=== PATIENT | male | born 1955 | race Caucasian/White ===

== ENCOUNTER → 2016-11-05 | Outpatient (CLI) | payer BC, OTHER ==
[~2016-11-05] MED LIST: ASPI-428 PO; METF1TAB53 PO; PRAV20TA2 PO; PRT/40 PO; RAMI5CAP PO; REGADENOSON 0.4 MG/5 ML SYR ONE; SITA50TA3 PO
--- NOTE | 2016-11-05 16:21 | MYOCARDIAL PERFUSION SCAN ---
LEXISCAN CARDIOLITE IMAGING TECHNIQUE: Pharmacologic stress was achieved through injection of 0.4 mg of Lexiscan. For the stress portion of the study, 33.9 mCi of technicium-99m Cardiolite IV was injected at 9:20 a.m. on 11/05/2016. 30 minutes following the injection, imaging of the heart was performed in multiple projections. For the rest portion of the study, 10.8 mCi of technicium-99m Cardiolite was injected IV at 7:30 a.m. One hour following the injections, imaging of the heart was performed in the same projections. FINDINGS: The short axis, vertical long axis, and horizontal long axis images were reviewed in detail. There were no perfusion defects at rest or during stress. On gated images, left ventricular wall motion and systolic function were normal (EF=83%). IMPRESSION: 1. No scintigraphic evidence of myocardial infarct or ischemia. 2. Normal left ventricular wall motion and systolic function (EF=83%). 3. No ECG abnormalities. 4. No symptoms reported. MTDD
== END | disposition home or self-care (01) ==
LOC: C.NUCL 06:59
PROVIDERS: ATTEND Internal Medicine
DX: R07.9 Chest pain, unspecified (principal)

== ENCOUNTER → 2017-09-20 | Outpatient (CLI) | payer BC ==
[~2017-09-20] MED LIST changes: +PANT40TA2 PO; -PRT/40 PO; -REGADENOSON 0.4 MG/5 ML SYR ONE
[2017-09-20 12:15] LABS: ESTIMATED AVERAGE GLUCOSE 174 mg/dl; HA1C FLAG Normal (Normal)
[2017-09-20 12:21] LABS: ALKALINE PHOSPHATASE 114 U/L (45-117); ALT/SGPT 40 U/L (12-78); AST/SGOT 21 U/L (15-37); BLOOD UREA NITROGEN 16 mg/dl (7-18); BUN/CREATININE RATIO 13.4 (10-20); CALCIUM 8.9 mg/dl (8.5-10.1); CARBON DIOXIDE 26 mmol/L (21-32); CHLORIDE 106 mmol/L (98-107); CHOLESTEROL 154 mg/dl (0-200); CREATININE 1.18 mg/dl (0.60-1.40); GLUCOSE 137 mg/dl (70-99); POTASSIUM 4.1 mmol/L (3.5-5.1); SODIUM 140 mmol/L (136-145)
[2017-09-20 12:22] LABS: BASO % 0.6 %; BASO ABS # 0.05 K/uL (0-0.2); COMPLETE YES; EOS % 1.6 %; HEMATOCRIT 49.5 % (42-52); IG% 0.5 %; LYMPH % 33.3 %; LYMPH ABS # 2.92 K/uL (1.2-3.4); MEAN CELL VOLUME 89.8 fL (80-100); MEAN CORPUSCULAR HEMOGLOBIN 30.7 pg (25-34); MEAN CORPUSCULAR HGB CONC 34.1 g/dl (32-36); MONO % 7.6 %; NEUT % 56.4 %; PLATELET COUNT 221 K/uL (130-400); RED BLOOD COUNT 5.51 M/uL (4.7-6.1); WHITE BLOOD COUNT 8.78 K/uL (4.8-10.8)
[2017-09-20 12:26] LABS: CHOLESTEROL/HDL RATIO 3.3; HDL CHOLESTEROL 46 mg/dl; LDL CHOLESTEROL CALCULATED 88 mg/dl; TRIGLYCERIDES 98 mg/dl (0-150); VERY LOW DENSITY LIPOPROT CALC 20 mg/dl
== END | disposition home or self-care (01) ==
LOC: C.LABPBG 09:03
PROVIDERS: ATTEND Internal Medicine
DX: Z00.00 Encounter for general adult medical examination without abnormal findings (principal); E11.9 Type 2 diabetes mellitus without complications; G47.33 Obstructive sleep apnea (adult) (pediatric); I10 Essential (primary) hypertension; E78.5 Hyperlipidemia, unspecified; K21.9 Gastro-esophageal reflux disease without esophagitis

== ENCOUNTER → 2018-01-16 | Outpatient (CLI) | payer BC ==
[2018-01-16 13:29] LABS: BLOOD UREA NITROGEN 21 mg/dl (7-18); CALCIUM 8.9 mg/dl (8.5-10.1); CARBON DIOXIDE 26 mmol/L (21-32); GLUCOSE 133 mg/dl (70-99); POTASSIUM 3.9 mmol/L (3.5-5.1); SODIUM 139 mmol/L (136-145)
[2018-01-16 13:42] LABS: HEMOGLOBIN A1C 6.6 % (4.5-5.6)
== END | disposition home or self-care (01) ==
LOC: C.LABBC 11:06
PROVIDERS: ATTEND Family Medicine Adult Medicine
DX: E11.9 Type 2 diabetes mellitus without complications (principal); I10 Essential (primary) hypertension; R53.83 Other fatigue

== ENCOUNTER → 2018-06-15 | Outpatient (CLI) | payer BC ==
[~2018-06-15] MED LIST changes: -ASPI-428 PO; +MELO-83 PO; +PANT40TA PO; -PANT40TA2 PO; +RANI150T85 PO
[2018-06-15 10:38] LABS: BLOOD UREA NITROGEN 17 mg/dl (7-18); CALCIUM 8.7 mg/dl (8.5-10.1); CARBON DIOXIDE 28 mmol/L (21-32); CREATININE 1.12 mg/dl (0.60-1.40); GLUCOSE 167 mg/dl (70-99); POTASSIUM 4.3 mmol/L (3.5-5.1); SODIUM 137 mmol/L (136-145)
[2018-06-15 11:32] LABS: BASO % 0.5 %; BASO ABS # 0.04 K/uL (0-0.2); EOS % 2.1 %; EOS ABS # 0.17 K/uL (0-0.5); HEMATOCRIT 49.5 % (42-52); HEMOGLOBIN 17.1 g/dL (14.0-18.0); IG# 0.07 K/uL (0.00-0.02); LYMPH % 28.9 %; LYMPH ABS # 2.32 K/uL (1.2-3.4); MEAN CELL VOLUME 88.1 fL (80-100); MEAN CORPUSCULAR HEMOGLOBIN 30.4 pg (25-34); MEAN CORPUSCULAR HGB CONC 34.5 g/dl (32-36); MEAN PLATELET VOLUME 10.9 fL (7.4-10.4); MONO % 10.5 %; MONO ABS # 0.84 K/uL (0.11-0.59); NEUT % 57.1 %; NEUT ABS # 4.58 K/uL (1.4-6.5); PLATELET COUNT 208 K/uL (130-400); RED CELL DISTRIBUTION WIDTH CV 12.7 % (11.5-14.5); RED CELL DISTRIBUTION WIDTH SD 40.3 fL (36.4-46.3); WHITE BLOOD COUNT 8.02 K/uL (4.8-10.8)
[2018-06-15 11:45] LABS: PTT PATIENT 28.7 SECONDS (21.0-31.0)
[2018-06-15 12:08] LABS: HEMOGLOBIN A1C 7.4 % (4.5-5.6)
== END | disposition home or self-care (01) ==
LOC: C.CPL 06:57
PROVIDERS: ATTEND Orthopaedic Surgery Sports Medicine
DX: Z01.810 Encounter for preprocedural cardiovascular examination (principal); Z01.812 Encounter for preprocedural laboratory examination

== ENCOUNTER 2022-06-08 08:05 | Observation (INO) ==
--- NOTE | 2022-05-12 10:20 | PAT Medication Instructions ---
Medication Instructions Date of Service May 12, 2022 Home Medications Medication Instructions Recorded pantoprazole 40 mg tablet,delayed 40 mg PO QAM #90 tabs 09/01/21 release (Protonix) pravastatin 20 mg tablet 20 mg PO QAM #90 tabs 09/01/21 pantoprazole 40 mg tablet,delayed release (Protonix) 40 mg PO QAM pravastatin 20 mg tablet 20 mg PO QAM Medical Marijuana 1 inh inhalation QAM PRN sitagliptin 100 mg tablet (Januvia) 100 mg PO QAM metformin 500 mg tablet,extended release 24 hr 1,000 mg PO QAM multivitamin 1 tab PO QAM ramipril 5 mg capsule 5 mg PO QAM DO NOT take the morning of surgery Medical Marijuana 1 inh inhalation QAM PRN sitagliptin 100 mg tablet (Januvia) 100 mg PO QAM metformin 500 mg tablet,extended release 24 hr 1,000 mg PO QAM multivitamin 1 tab PO QAM ramipril 5 mg capsule 5 mg PO QAM Take morning of surgery With a small sip of water, OTHERWISE NOTHING TO EAT OR DRINK AFTER MIDNIGHT: pantoprazole 40 mg tablet,delayed release (Protonix) 40 mg PO QAM pravastatin 20 mg tablet 20 mg PO QAM Other Notes If you have any questions please call us at [phone] or [phone] or [phone] or [phone]
--- NOTE | 2022-05-13 11:42 | Anesthesiology Consultation ---
Date of Service May 13, 2022 Assessment & Plan (1) Encounter for pre-operative examination: Chart Review Chart Review: Acceptable Risk for Surgery (pending preop Covid testing results ) and Patient seen in Pre Admission Testing - Check BSG AM DOS Per PAT appt on 05/13/22, patient traveled to the [facility]- returned 05/09/22. No known Covid positive exposures or Covid related symptoms. No known Covid infection in the past 90 days. Pt is vaccinated for Covid. Preop Covid testing scheduled 06/04/22 = will await results. Educated on importance of self quarantining, social distancing and wearing mask in public for the patient one week prior to surgery and after Covid testing done R TKA 07/11/18= Done under SAB at L3 with 1 attempt Teaching & Discussion Pre-Anesthesia Teaching/Discussion Notes: Instructed NPO after midnight before surgery,except medications with 15 cc of water. Medication instructions provided according to the PAT guidelines. History Surgery Operation Date: 06/08/22 07:00 Proposed Procedures p Right Total Knee Removal and Possible Revision Arthroplasty Versus Antibiotic Spacer - Marciano Parkinson MD Height/Weight Height: 5 ft 11 in Weight: 109.1 kg Allergies Allergy/AdvReac Type Severity Reaction Status Date / Time No Known Allergies Allergy Verified 05/11/22 08:39 Medications Home Medications Medication Instructions Recorded Confirmed Last Taken pantoprazole 40 mg tablet,delayed 40 mg PO QAM #90 tabs 09/01/21 05/11/22 Unknown release (Protonix) pravastatin 20 mg tablet 20 mg PO QAM #90 tabs 09/01/21 05/11/22 Unknown Medical Marijuana 1 inh inhalation QAM PRN Pain 10/08/21 05/11/22 Unknown sitagliptin 100 mg tablet (Januvia) 100 mg PO QAM 04/23/22 05/11/22 Unknown metformin 500 mg tablet,extended 1,000 mg PO QAM 05/11/22 05/11/22 Unknown release 24 hr multivitamin 1 tab PO QAM 05/11/22 05/11/22 Unknown ramipril 5 mg capsule 5 mg PO QAM 05/11/22 05/11/22 Unknown Past Medical History Medical History Chronic back pain Diabetes mellitus, type 2 NIDDM Hgb A1C 7.9 on 04/23/22 (Januvia increased per patient) GERD (gastroesophageal reflux disease) Mild Well controlled and stable Hiatal hernia Hyperlipidemia Hypertension Obesity (BMI 30-39.9) Osteoarthritis Painful total knee replacement, right Sleep apnea CPAP Exercise / Class Metabolic Activity III < 4 Walking/Shop/Light housework (no chest pain or SOB with flat surface ambulation- starting using cane today due to knee pain ) Past Family History Family History Father Cancer Mother Coronary arteriosclerosis Diabetes Essential hypertension Brother Prostate cancer Myocardial infarction Denies family history of Ovarian cancer Breast cancer Lung cancer Colorectal cancer Past Surgical History Surgical History History of carpal tunnel release LEFT History of colonoscopy with polypectomy History of esophagogastroduodenoscopy (EGD) History of lumbar spinal fusion History of total knee replacement right Hx of cholecystectomy Past Anesthesia History No Hx of Anesthesia Complications and No Family Hx of Anesthesia Complications History of PONV No Hx of PONV and No Hx of Motion Sickness Social History Smoking Status: Never smoker tobacco type: smokeless tobacco Do You Dip or Chew Tobacco: Yes (1 can/week (advised)) Hx Alcohol Use: No Hx Substance Use: Yes (medical) substance use type: marijuana Substance Use Type Other:: medical marijuana> qam vapes > for pain Last Used Substance Other:: OCAS - ADVISED Review of Systems Mild cough x months- does not feel sick/ill/no other symptoms- cough mild/stable- only at night - unsure if he had Covid in Dec 2021 (home tests negative)- unsure if residual effects vs allergies Patient denies chest pain, shortness of breath, wheezing, palpitations. No hx of seizures, stroke, [place]. No hx of blood clots or blood transfusions Physical Exam VITALS BP 159/79 (pt in increased knee pain) P 72 TEMP 98.5 SP02 97% RESP 16 Constitutional no acute distress ENMT Mouth: + small oral opening; no TMJ clicking Thyromental Distance: > or= 3.5 Finger Breadths (3.5) Mallampati Class: IV Missing molars Capped to molar Neck + limited neck extension (mild ) Respiratory normal respiratory effort; no respiratory distress Auscultation: lungs clear to auscultation bilaterally; no wheezes Cardiovascular Rate/Rhythm: regular rate and regular rhythm Heart Sounds: no murmur Vessels: no carotid bruit Musculoskeletal Spine: no pain with cervical ROM Extremities: extremities normal to inspection Psychiatric Orientation: alert Lab Results Anesthesia Preop Results Results Anesthesia Widget: WBC 12.45 K/ul (4.8-10.8) H 05/13/22 Hgb 15.7 g/dl (14.0-18.0) 05/13/22 Hct 46.4 % (40.1-51.0) 05/13/22 Plt 259 K/uL (130-400) 05/13/22 Na 136 mmol/L (136-145) 05/13/22 K 4.1 mmol/L (3.5-5.1) 05/13/22 Cl 102 mmol/L (98-107) 05/13/22 CO2 28 mmol/L (21-32) 05/13/22 BUN 15 mg/dl (6-23) 05/13/22 Creat 1.05 mg/dl (0.6-1.4) 05/13/22 Glucose Level 110 mg/dl (70-99(Fasting)) H 05/13/22 PT 11.6 Seconds (9.0-12.0) 05/13/22 PTT 31.9 Seconds (21.0-31.0) H 05/13/22 INR 1.1 (0.9-1.1) 05/13/22 HA1c 7.9 % (4.5-5.6) H 04/23/22 Blood Type O Positive 05/13/22 Antibody Screen NEGATIVE 05/13/22 Testing Laboratory Results Surgeon's office made aware mild leukocytosis - will leave to surgeon's discretion how to proceed Electrocardiogram Date: 05/13/22 Findings: + NSR @ (71bpm ) Normal EKG per cardio. Chest X-Ray Date: 05/13/22 Findings: + NAD
[~2022-06-08 08:05] MED LIST changes: +ACETAMINOPHEN 500 MG TAB PO SCH; +BUPIVACAINE 0.5 % 5 MG/1 ML PF 10ML VIAL ONE; +BUPIVACAINE LIPOSOME/PF 266 MG, BUPIVACAINE/EPINEPHRINE 50 ML, SODIUM CHLORIDE 0.9% 30 ... INFIL SCH; +CeleBREX 200 MG CAP PO SCH; +DAKIN'S SOLN 0.5% FULL STRENGTH 473ML BTL EXT ONE; +EPINEPHrine INJ 1 MG/ML AMP ONE; +FAMOTIDINE 20 MG TAB PO SCH; +LR 500ML BOLUS, THEN 15ML/HR IV SCH; +LR 60ML/HR IV SCH; -MELO-83 PO; -METF1TAB53 PO; +METOCLOPRAMIDE HCL 10 MG TABLET PO SCH; -PANT40TA PO; -PRAV20TA2 PO; -RAMI5CAP PO; -RANI150T85 PO; +ROPIVACAINE 0.5% 5 MG/ML 30 ML VIAL ONE; -SITA50TA3 PO; +Scopolamine 1 MG TDSY TD SCH; +TRANEXAMIC ACID 1,000 MG **IV Intra-op IV SCH; +ceFAZolin 2000MG 2,000 MG/15 ML SYR IV SCH
[2022-06-08] MEDS ORDERED: MIDAZOLAM HCL 1 MG/ML 2ML VIAL ONE (08:17)
[2022-06-08] MEDS ORDERED: fentaNYL citrate 100 MCG/2 ML VIAL ONE (08:17)
--- NOTE | 2022-06-08 09:04 | History & Physical Bridge Note ---
Date of Service June 08, 2022 History & Physical Bridge Note I have examined the patient, reviewed the History & Physical and in the interval since the performance of the History & Physical I have noted the following changes of clinical significance: no changes noted
[2022-06-08] MEDS ORDERED: BUPIVACAINE/EPINEPHRINE 0.25% 1:200,000 30 ML VIAL ONE (10:58)
[2022-06-08] MEDS ORDERED: SODIUM CHLORIDE 0.9% PF 50 ML VIAL ONE (10:59)
[2022-06-08] MEDS ORDERED: BUPIVACAINE LIPOSOME 1.3% 266 MG/20 ML VIAL ONE (10:59)
[2022-06-08] MEDS ORDERED: VANCOMYCIN HCL 1000MG/20ML VIAL ONE ×5 (11:00→14:07)
[2022-06-08] MEDS ORDERED: TOBRAMYCIN SULFATE VIAL ONE ×5 (11:01→14:08)
[2022-06-08] MEDS ORDERED: PROPOFOL IV EMULSION 10 MG/ML 20 ML VIAL IV ONE ×6 (11:36→14:05)
[2022-06-08] MEDS ORDERED: ONDANSETRON INJ 2 MG/ML 2 ML VIAL ONE (11:39)
[2022-06-08] MEDS ORDERED: GLYCOPYRROLATE 0.2 MG/ML VIAL ONE (11:39)
[2022-06-08] MEDS ORDERED: KETAMINE 50 MG/5 ML SYRINGE ONE (11:39)
[2022-06-08] MEDS ORDERED: VANCOMYCIN HCL 1,000 MG in SODIUM CHLORIDE 0.9% 250 ML IV ONE (12:03)
[2022-06-08] MEDS ORDERED: ePHEDrine sulfate 50 MG/ML AMP ONE (12:14)
[2022-06-08] MEDS ORDERED: PHENYLEPHRINE 100MCG/ML 5ML SYR ONE (12:14)
[2022-06-08] MEDS ORDERED: PROMETHAZINE HCL 12.5 MG in SODIUM CHLORIDE 0.9% 50 ML IV PRN (15:16)
[2022-06-08] MEDS ORDERED: ATROPINE SULFATE 0.1 MG/ML 10ML SYR IV PRN (15:16)
[2022-06-08] MEDS ORDERED: ePHEDrine sulfate 50 MG/ML AMP IV PRN (15:16)
[2022-06-08] MEDS ORDERED: NALOXONE HCL 0.4 MG/1 ML VIAL/CARP IV PRN ×2 (15:16→18:03)
[2022-06-08] MEDS ORDERED: LABETALOL HCL IV 5 MG/ML 20ML IV PRN (15:16)
[2022-06-08] MEDS ORDERED: FLUMAZENIL 0.1 MG/1 ML 10 ML VIAL IV PRN (15:16)
[2022-06-08] MEDS ORDERED: ONDANSETRON INJ 2 MG/ML 2 ML VIAL IV PRN ×2 (15:16→18:03)
[2022-06-08] MEDS ORDERED: VANCOMYCIN CONSULT ACTIVE PRN ×2 (15:38→18:03)
[2022-06-08] MEDS ORDERED: VANCOMYCIN HCL 1,250 MG in SODIUM CHLORIDE 0.9% 250 ML IV STA (15:41)
--- NOTE | 2022-06-08 15:41 | Operative Report ---
PG Post Operative Report Pre & Post Diagnosis Operation Date: 06/08/22 10:40 Pre-Op Diagnosis: Painful Right Total Knee Replacement with possible septic versus aseptic loosening Post-Op Diagnosis: Painful Right Total Knee Replacement with likely underlying infection with osteolysis I identified the patient and participated in the time-out.: Yes Procedure Operation Date: 06/08/22 10:40 Actual Procedures p Right Total Knee Removal with Placement of Antibiotic Spacer(Right) - Marciano Parkinson MD Surgeon Marciano Parkinson MD Operations Tech Izaiah Mathews PA-C Estimated Blood Loss 200 Findings Consistent with Post-Op Diagnosis Operative findings revealed pretty extensive osteolysis of the anterior medial tibia with exposed component. There was no gross loosening of the tibial tray. There was some osteolysis around the femur as well. No obvious pus or purulence. There was significant osteolysis particular around the tibia suggestive of some degree of underlying infection. Very mild synovitis. Frozen section revealed a 2 polys per high-power field. Specimens The synovium for sent for frozen section revealed 2 polys per high-power field. Cultures x3 one of the knee joint fluid, one of the tibial canal, one of the femoral canal. Tissue culture x2 of the synovium. Drains None Anesthesia Type Spinal MAC Complications none Indications Patient is 66-year-old gentleman who is now about 4 years out from a right total knee replacement. He never really got good relief from his knee replacement. He did have a history of an open meniscectomy prior to this. He has developed recurrent effusions in his knees. He has been through extensive infectious work-up which showed no growth on cultures. His knee aspirate suggested low- level infection. There was also bone destruction of his medial tibial plateau on x-ray over time. Patient failed conservative measures and elected proceed with a revision. Plan was to revise to a new knee replacement versus antibiotic spacer. Description of Procedure The patient was taken to the operating, identified, placed on the operating table supine position protectors were properly padded. IV antibiotics tried by anesthesia team. A spinal anesthetic and abductor canal block provided holding area. Bowman catheter was placed in sterile fashion. Right Tetrick was then placed in the right lower extremities and prepped and draped in usual sterile fashion. The right leg was elevated exsanguinated with use of an Esmarch in terms playset 300 mmHg. An anterior approach of the right knee was then performed to the previous incision extending it just slightly proximally and distally. Sharp dissection was carried through subcutaneous tissue down the extensor mechanism. A medial parapatellar arthrotomy incision was made. Some of the fluid was sent off for stat gram stain aerobic anaerobic culture. Distal subperiosteal dissection was carried out medially. I did a complete synovectomy. We sent some of this synovium for frozen section as well as tissue culture. The frozen section revealed about 2 polys per high-power field. Despite this fairly benign appearance I was concerned about the bone destruction and his chronic pain in the preoperative work-up with increased uptake in the tibia and the femur with a bone scan and felt that we really needed to resect these implants and treat him for infection. We elected proceed along this course. Synovium was sent for tissue culture I then remove the polyethylene. With the use of a saw we broke the interface of the distal femur and remove the femur with fairly minimal damage. There was a small little crack in the anterior aspect of the femur covered by the implant. Did not in fact the structural stability of the knee itself in the bone itself. Attention drawn the tibia. Use of the song the stacked osteotome technique at the tibial component was removed. I did removed from the cement and then we very carefully remove the cement try to minimize bone loss. I elect to place the antibiotic spacer despite the frozen section and concerned for infection based on clinical appearance and persistent pain in the preoperative work-up. The proximal tibia was entered with the drill. We then reamed and then to use the reamer to just freshen up the proximal tibial cut and remove all cement. A similar procedure was done to the distal femur. The intramedullary canal was entered and we reamed up to get cortical chatter. I then cut at 5 degrees and just did a freshen up cut to get rid of some of the bone cement and down to bone. I spent quite a bit of time removing additional bone cement. We then less defined the edges of the patella. Saw was used to cut the patella component out and then used a drill to remove the plastic pegs. Once this was completed I irrigated the wound extensively. We did irrigate with the Dakin solution as well and let that sit in the wound. We sized this for the appropriate ChoiceMapuy cemented articulating spacers. We then went to a preparing them. While the Dakin solution was in place and we prepared the implants. We used the medium femur and medium tibial molds. The tibial mold was filled to a 15 and the femoral mold was filled just to the surface. We used a total of 4 packs of cement, 12 g of vancomycin, 8 bottles of tobramycin. We also created some intramedullary dowels which we placed in the IM canals. Once this had cement hardened the implants were removed from the molds. We then mixed an additional batch of Palacos cement with 3 bottles of Vanco and 2 bottles of Tobra. How ever, when placed in the femoral component we fractured the femoral component and this had to be discarded. I did go ahead and fix the tibia with this batch of cement. We then had to mix another 2 batches of Palacos cement with 6 bottles of vancomycin and 4 bottles of tobramycin and let this hardened. Once this is hardened we removed it from the mold and affixed it to the femur with an additional pack of Palacos G cement with 3 bottles of Vanco and 2 vials of tobramycin. The knee was brought out in full extension until cement hardened. I then took the knee through range of motion it was quite stable. He had a good 0 to 120 degrees of motion. Oh the tourniquet was let down before we began cementing the implants for tourniquet time 105 minutes. We then injected locally with 60 cc of half percent Marcaine with epinephrine. We irrigated the wound extensively. The extensor mechanism closed with #1 PDS suture in a [id number] fashion. Extensor mechanism checked found to be intact the subcutaneous tissue then closed with 2 Dexon suture in buried knot fashion skin was closed skin jyothi. Leg was then cleaned and dried a sterile dressing was Xeroform, 4 fours, sterile cast padding, Boris bandage, knee immobilizer applied. Patient then transferred to the recovery room in stable condition. Patient tolerated procedure well no complications. Izaiah Mathews, my physician assistant professor of communication, was present for the entire procedure. His assistance was essential and required for appropriate patient positioning, prepping and draping, surgical exposure, performing the technical details of the operation, placement the implants, closure of the wound, and placement of the sterile bandage. I attest to the content of the Intraoperative Record and any orders documented therein. Any exceptions are noted below.
[2022-06-08] MEDS: fentaNYL citrate 100 MCG/2 ML VIAL IV PRN ×4 (15:52→16:55)
--- NOTE | 2022-06-08 16:03 | XRay Report ---
XR knee RT 1 or 2V routine CLINICAL HISTORY: Postoperative evaluation. COMPARISON: Knee radiographs May 10, 2022. FINDINGS: Interval hardware removal with placement of antibiotic spacer is noted. There are skin sta ples. Expected findings are noted. No fracture is identified. Lucency with cortical regularity of the distal right femur is noted. IMPRESSION: 1. Postoperative radiographs demonstrating interval hardware removal with placement of antibiotic spa cer. 2. Lucency with cortical irregularity of the distal right femur. This is nonspecific and an infectiou s process is within the differential. ACT 112: Negative or not required by law. Electronically signed by: Fernando Ramirez M.D. 06/08/2022 4:02 PM
--- NOTE | 2022-06-08 16:21 | Anesthesiology Progress Note ---
Date of Service June 08, 2022 Anesthesia Post Procedure Vital Signs Vital Signs: Temp Pulse Pulse Resp BP Pulse Ox O2 Del Method 06/08/22 16:00 73 19 160/82 H 96 Room Air 06/08/22 16:10 72 12 106/56 L 95 Room Air 06/08/22 15:50 78 24 147/90 H 97 Room Air 06/08/22 15:40 78 26 H 144/83 H 95 Oxymask 06/08/22 15:34 36.5 C 85 14 133/81 96 Oxymask 06/08/22 09:15 36.4 C L 63 18 155/87 H 95 Room Air O2 Flow Rate 06/08/22 16:00 06/08/22 16:10 06/08/22 15:50 06/08/22 15:40 4 06/08/22 15:34 5 06/08/22 09:15 Pain Intensity Left Heel: Pain Intensity: 2 Transfer of Care Handoff Completed per policy Notes Mental Status: alert / awake / arousable Patient Amnestic to Procedure: Yes Nausea / Vomiting: adequately controlled Pain: adequately controlled Airway Patency, RR, SpO2: stable & adequate BP & HR: stable & adequate Hydration State: stable & adequate Neuraxial Anesthesia: was administered and sensory block is resolving Anesthetic Complications: no major complications apparent
[2022-06-08] MEDS ORDERED: METOCLOPRAMIDE HCL INJ 5 MG/ML 2 ML VIAL IV PRN (18:03)
[2022-06-08] MEDS ORDERED: PHARMACY GLYCEMIC MGMT CONSULT PRN (18:03)
[2022-06-08] MEDS ORDERED: bisacodyL 10 MG SUPP PR PRN (18:03)
[2022-06-08] MEDS ORDERED: MAGNESIUM HYDROXIDE SUSP 30 ML UDC PO PRN (18:03)
[2022-06-08] MEDS ORDERED: ALUMINUM/MAGNESIUM SUSP 30 ML UDC PO PRN (18:03)
[2022-06-08] MEDS: Scopolamine CHECK PATCH PLACEMENT SCH (18:20)
[2022-06-08] MEDS: SODIUM CHLORIDE 0.9% 1000ML 1,000 ML IV SCH (18:22)
[2022-06-08] MEDS ORDERED: MEDICAL MARIJUANA INH PRN (18:23)
[2022-06-08] MEDS: oxyCODONE HCL IR 5 MG TAB (IMMEDIATE RELEASE) PO PRN (18:40)
[2022-06-08] MEDS ORDERED: DEXTROSE 50% 50 ML SYRINGE IV PRN (18:45)
[2022-06-08] MEDS ORDERED: GLUCOSE 10 TAB/TUBE PO PRN (18:45)
[2022-06-08] MEDS ORDERED: GLUCAGON FOR INJ 1 MG VIAL IM PRN (18:45)
[2022-06-08] MEDS ORDERED: GLUCOSE 40% GEL 15 GM TUBE PO PRN (18:45)
[2022-06-08] MEDS ORDERED: CARBOHYDRATES FOR HYPOGLYCEMIA PO PRN (18:45)
[2022-06-08 18:48] LABS: Creatinine Clr Calc Pharmacy 81.4 ml/min; Est GFR (African American) 82.8 ml/min; Est GFR (Non-African American) 71.5 ml/min
[2022-06-08] MEDS: INSULIN ASPART PER UNIT SC SCH ×2 (18:49→21:31)
[2022-06-08] MEDS: ASCORBIC ACID 500 MG TAB PO SCH (19:11)
[2022-06-08] MEDS: HYDROmorphone INJ 0.5 MG/0.5 ML SYR IV PRN ×2 (19:42→23:34)
[2022-06-08] MEDS: KETOROLAC TROMETHAMINE 15 MG/ML VIAL IV SCH (19:43)
--- NOTE | 2022-06-08 19:49 | Pharmacy Report ---
Pharmacy PK ABX Note - Date of Service June 08, 2022 - Assessment and Plan Assessment 66 year old M receiving vancomycin for treatment of bone infection. Pertinent microbiologic data includes: N/A. Day # 1 of antimicrobial therapy. Plan Vancomycin * Loading dose: 2250 mg IV x 1 * Maintenance dose: 1250 mg IV every 12 hours * Regimen is predicted to achieve target AUC/CINTHIA of 400-600 mg/L.hr * Level to be ordered based upon duration of therapy Pharmacy will continue to follow and will adjust dose/frequency as necessary. Thank you. Pharmacy has transitioned to AUC monitoring for vancomycin. AUC/CINTHIA is the preferred PK/PD target and is associated with decreased risk of nephrotoxicity compared to traditional trough targets.
--- NOTE | 2022-06-08 20:30 | Hospitalist Consultation ---
Date of Consultation June 08, 2022 Assessment & Plan (1) Septic joint of right knee joint: -Patient currently afebrile, hemodynamically stable, and stable on room air -No reported intra-op complications -Was started on Vancomycin Post-op, continue with Vanc and will add on Cefepime for Gram-Negative coverage -Rest of care per the primary team -Tailor antibiotics to infectious workup from the procedure, would recommend ID consult if patient decompensates on current abx regimen (2) History of revision of total replacement of right knee joint: -See above (3) Hypertension: -Hemodynamically stable -Hold GENERAL MAGISTRATE antihypertensives overnight to avoid hypertension, can restart tomorrow if stable (4) Type 2 diabetes mellitus: -Hold GENERAL MAGISTRATE Januvia and Metformin -Pharmacy consult had already been placed -Goal BSG Range: Low 110mg/dL, High 140mg/dL --Correction Factor: 20mg/dL/unit --Carbohydrate ratio = 7 g/unit (5) Dyslipidemia: -GENERAL MAGISTRATE pravastatin (6) MARQUIS (obstructive sleep apnea): -Patient brought home CPAP -Order in that he can use his own machine Plan -The patient was discussed with Dr. Balwinder Barkley at the time of the consult Supervising Physician Co-Signing Physician Notes I supervised Usman Brewer PA-C on this consult. I interviewed and examined the patient independently of him. The plan is as written in his note except for any following changes/exceptions: None 66yo M w/ long-standing issues with his right knee after TKA about 4 years ago. Seen at approx. 4:30am. Patient still not in any pain after surgery. Has had many aspirations with negative culture. Op note indicates concern for infection, but I have a hard time knowing what we're treating given the many negative cultures. At this point, it would seem to me a typical Staph/Strep infection is very unlikely. Possibly some fairly uncommon autoimmune issue vs. a very slow-growing (ie [id number]) organism. Will continue abx at this point, but would strongly consider ID and/or rheumatology consult to help better tailor our treatment. History of Present Illness Reason for Consultation: Medical management and Infectious Disease Consult Attending Physician: Marciano Parkinson MD History of Present Illness Beka is a 66 year old male with a PMH significant for previous right total knee arthropathy, 2018, HTN, hyperlipidemia, DMII, chewing tobacco use, MARQUIS on CPAP, and hiatal hernia who presented to the OR today for scheduled Right Total Knee Removal with Placement of Antibiotic Spacer. Per chart review, the patient was seen in the Ortho clinic on 05/10/22 for persistent right knee pain and swelling. Per the post-op note, the patient had an EBL of 200 mL, received Spinal MAC for anesthesia, and had no intraoperative complications. Per the anesthesia chart, the patient received 100 mcg of phenylephrine in the OR for one episode of hypotension. The patient was given cefazolin prior to his procedure and was started on Vancomycin post-op. Per the post-op note, there were concerns for infection and significant bone destruction at the site of the old right knee replacement. At the time of my exam the patient was resting comfortable in bed and in no acute distress. He recently received pain medication and has no complaints at this time. He would like a nicotine patch as he can't use his chewing tobacco while admitted. Allergies Allergy/AdvReac Type Severity Reaction Status Date / Time diphenhydramine AdvReac Mild Verified 06/08/22 08:49 [From Johana] Home Medications Medication Instructions Recorded Confirmed Type pantoprazole 40 mg tablet,delayed 40 mg PO QAM #90 tabs 09/01/21 06/08/22 Rx release (Protonix) pravastatin 20 mg tablet 20 mg PO QAM #90 tabs 09/01/21 06/08/22 Rx Medical Marijuana 1 inh inhalation QAM PRN Pain 10/08/21 06/08/22 History sitagliptin 100 mg tablet (Januvia) 100 mg PO QAM 04/23/22 06/08/22 History metformin 500 mg tablet,extended 1,000 mg PO QAM 05/11/22 06/08/22 History release 24 hr multivitamin 1 tab PO QAM 05/11/22 06/08/22 History ramipril 5 mg capsule 5 mg PO QAM 05/11/22 06/08/22 History acetaminophen 500 mg capsule 1,000 mg PO TID Pain 30 days #180 06/06/22 06/08/22 Rx caps aspirin 81 mg tablet,delayed 81 mg PO BID 45 days #90 tabs 06/06/22 06/08/22 Rx release (Dionisio Low Dose Aspirin) ketorolac 10 mg tablet 10 mg PO Q6 Pain 5 days #20 tabs 06/06/22 06/08/22 Rx ondansetron HCl 4 mg tablet 4 mg PO Q6 PRN nausea #30 tabs 06/06/22 06/08/22 Rx oxycodone 5 mg tablet 5 - 10 mg PO Q6 PRN pain #40 tabs 06/06/22 06/08/22 Rx sennosides 8.6 mg-docusate sodium 1 tab-cap PO DAILY #14 tabs 06/06/22 06/08/22 Rx 50 mg tablet (Senokot-S) tamsulosin 0.4 mg capsule (Flomax) 0.4 mg PO DAILY #7 caps 06/06/22 06/08/22 Rx Patient History Medical History Chronic back pain Diabetes mellitus, type 2 NIDDM Hgb A1C 7.9 on 04/23/22 (Januvia increased per patient) Encounter for pre-operative examination Fatigue GERD (gastroesophageal reflux disease) Mild Well controlled and stable Hiatal hernia History of colon polyps Hyperlipidemia Hypertension Knee pain, right Obesity (BMI 30-39.9) Osteoarthritis Painful total knee replacement, right Sleep apnea CPAP Surgical History History of carpal tunnel release LEFT History of colonoscopy with polypectomy History of esophagogastroduodenoscopy (EGD) History of lumbar spinal fusion History of total knee replacement right History of total right knee replacement Hx of cholecystectomy Family History Father Cancer Mother Coronary arteriosclerosis Diabetes Essential hypertension Brother Prostate cancer Myocardial infarction Denies family history of Ovarian cancer Breast cancer Lung cancer Colorectal cancer Social History Smoking Status: Never smoker Second Hand Exposure: No; Do You Dip or Chew Tobacco: Yes (1 can/week (advised)); Tobacco Cessation Education Requested by Patient: No Hx Alcohol Use: No Hx Substance Use: Yes (medical) Prescribed Medications: Marijuana Last Used Substance Other:: OCAS - ADVISED Substance Use Type Other:: medical marijuana> qam vapes > for pain Preferred Language: Mongolian Communication Ability: Effective Visual Impairment: Diminished Hearing Ability: Hard of Hearing [employer] Front Desk Attendant Required: No Beliefs That Will Affect Care: None marital status: Current Living Situation: Spouse current occupational status: retired Other Information That Helps Us Care for You: No Feels Safe at Home: Yes Safety Concerns: Feels Safe At This Time Childhood Exposure to Second-Hand Smoke: No caffeine: Yes Dental Care, Regularly: Yes Physical Activity Frequency: Does not Exercise Physical Activity Frequency Comment: due to knee issues Seatbelt Use: always Sunscreen Use: Yes Do you think of yourself as: straight/heterosexual Assistive Devices: Brace/Splint/Immobilizer and Glasses Review of Systems Constitutional: no fever, no chills and no malaise Eyes: no diplopia and no problem reported Ear, Nose, Mouth, Throat: no ear pain, no tinnitus and no sore throat Respiratory: no cough, no dyspnea and no problem reported Cardiovascular: no chest pain and no palpitations Gastrointestinal: no abdominal pain, no nausea and no vomiting Genitourinary: no dysuria or no hematuria Musculoskeletal: no joint pain Integumentary: no rash Neurologic: no localized weakness, no loss of sensation, no numbness, no paresthesia and no confusion Psychiatric: no suicidal ideation and no homicidal ideation Allergy / Immunological: no lip swelling, no tongue swelling and no wheezing Physical Exam Constitutional: WD/WN, vitals as above Eyes: PERRL, conjunctivae normal, anicteric sclerae ENMT: external ear and nose normal, oropharynx normal Neck: trachea midline, no thyromegaly Respiratory: normal respiratory effort; no respiratory distress, does not use accessory muscles, no cough and no audible wheezes Cardiovascular: RRR, no murmur, no edema Gastrointestinal (Abdomen): Normoactive bowel sounds, soft, non-tender to palpation throughout, hiatal hernia located in the upper abdomen is easily reducible and without signs of strangulation Musculoskeletal: No ROM limitations in the BL UE's or the LLE, patient curently with RLE wrapped from procedure, patient with intact sensation and cap refill < 2 sec in the right foot, able to move toes without issue, no signs of drainage at the surgical site Skin: no rashes, warm and dry Neurologic: PERRL, EOMI, accommodation nl, no face palsy, no dysarthria Psychiatric: A+Ox3, euthymic affect Genitourinary: Patient currently with smart catheter in place, draining clear, yellow urine Results & Data Results & Data ([facility]) Vital Signs (Past 12 Hours) Vital Signs Temp Pulse Pulse Resp BP Pulse Ox O2 Del Method 06/08/22 19:10 36.7 C 83 17 135/85 96 Room Air 06/08/22 18:39 36.6 C 84 17 157/78 H 96 Room Air 06/08/22 17:58 36.5 C 78 17 146/81 H 96 Room Air 06/08/22 17:30 71 16 113/49 L 95 Room Air 06/08/22 17:15 67 19 157/88 H 97 Room Air 06/08/22 17:00 68 20 168/84 H 98 Room Air 06/08/22 16:45 67 15 138/92 97 Room Air 06/08/22 16:00 73 19 160/82 H 96 Room Air 06/08/22 16:20 36.4 C L 71 12 118/90 96 Room Air 06/08/22 16:10 72 12 106/56 L 95 Room Air 06/08/22 15:50 78 24 147/90 H 97 Room Air 06/08/22 15:40 78 26 H 144/83 H 95 Oxymask 06/08/22 15:34 36.5 C 85 14 133/81 96 Oxymask 06/08/22 09:15 36.4 C L 63 18 155/87 H 95 Room Air O2 Flow Rate 06/08/22 19:10 06/08/22 18:39 06/08/22 17:58 06/08/22 17:30 06/08/22 17:15 06/08/22 17:00 06/08/22 16:45 06/08/22 16:00 06/08/22 16:20 06/08/22 16:10 06/08/22 15:50 06/08/22 15:40 4 06/08/22 15:34 5 06/08/22 09:15 Laboratory Results Abnormal lab results 06/08/22 06/08/22 06/08/22 Range/Units 08:57 15:20 18:14 POC Glucose 153 H 136 H 120 H (70-99) mg/dl 06/08/22 Range/Units 20:35 POC Glucose 169 H (70-99) mg/dl Diagnostic Findings Knee X-Ray 06/08/22 15:26 XR knee RT 1 or 2V routine CLINICAL HISTORY: Postoperative evaluation. COMPARISON: Knee radiographs May 10, 2022. FINDINGS: Interval hardware removal with placement of antibiotic spacer is noted. There are skin jyothi. Expected findings are noted. No fracture is identified. Lucency with cortical regularity of the distal right femur is noted. IMPRESSION: 1. Postoperative radiographs demonstrating interval hardware removal with placement of antibiotic spacer. 2. Lucency with cortical irregularity of the distal right femur. This is nonspecific and an infectious process is within the differential. ACT 112: Negative or not required by law. Electronically signed by: Fernando Ramirez M.D. 06/08/2022 4:02 PM Medications Administered Ascorbic Acid (Ascorbic Acid 500 Mg Tab) 500 mg PO BIDM ED Stop: 07/08/22 18:02 Last Admin: 06/08/22 19:11 Dose: Not Given Documented By: CS Fentanyl Citrate (Fentanyl Citrate 100 Mcg/2 Ml Vial) 25 mcg IV Q5M PRN PRN Reason: PACU Use Only-Pain Stop: 06/08/22 23:16 Last Admin: 06/08/22 16:55 Dose: 25 mcg Documented By: Admin: 06/08/22 16:50 Dose: 25 mcg Documented By: Admin: 06/08/22 16:45 Dose: 25 mcg Documented By: Admin: 06/08/22 15:52 Dose: 25 mcg Documented By: LML Hydromorphone HCl (Hydromorphone Inj 0.5 Mg/0.5 Ml Syr) 0.5 mg IV Q4H PRN PRN Reason: Pain or Pre PT Stop: 06/22/22 18:02 Last Admin: 06/08/22 19:42 Dose: 0.5 mg Documented By: DMR Lactated Ringer's (Lr) 1,000 mls @ 60 mls/hr IV .[id number] ED Stop: 06/08/22 22:39 Last Admin: 06/08/22 08:59 Dose: Not Given Documented By: MPF Sodium Chloride (Nss 1000ml) 1,000 mls @ 100 mls/hr IV .Q10H ED Stop: 06/09/22 06:00 Last Admin: 06/08/22 18:22 Dose: 100 mls/hr Documented By: CS Insulin Aspart (Insulin Aspart Per Unit) 0 units SC ACHS ED Stop: 07/08/22 18:29 Last Admin: 06/08/22 18:49 Dose: Not Given Documented By: FERNANDA Co-signed By: TABITHA Ketorolac Tromethamine (Ketorolac Tromethamine 15 Mg/Ml Vial) 15 mg IV Q6H [facility] Stop: 06/10/22 14:01 Last Admin: 06/08/22 19:43 Dose: 15 mg Documented By: BRIAN Miscellaneous (Scopolamine Check Patch Placement) 1 each N/A QS [facility] Stop: 06/11/22 07:59 Last Admin: 06/08/22 18:20 Dose: 1 each Documented By: FERNANDA Oxycodone HCl (Oxycodone Hcl Ir 5 Mg Tab (Immediate Release)) 5 - 10 mg PO Q6 PRN PRN Reason: pain Stop: 06/22/22 18:02 Last Admin: 06/08/22 18:40 Dose: 10 mg Documented By: FERNANDA PG Care Time/CCT Total # of Minutes Spent Total Time Spent with Patient: Total time spent is greater than 50% in coordination of care (as documented) at patient's floor/unit and/or counseling patient: Coding Level of Care Code 80874 Inpt Consult Level 2 Diagnoses Septic joint of right knee joint M00.9 History of revision of total replacement of right knee joint Z96.651 Hypertension I10 Hypertension type: essential hypertension Type 2 diabetes mellitus E11.9 Diabetes mellitus complication status: without complication Diabetes mellitus lobsterman insulin use: without prison use Dyslipidemia E78.5 MARQUIS (obstructive sleep apnea) G47.33 (1) Type 2 diabetes mellitus Diabetes mellitus complication status: without complication Diabetes mellitus prison insulin use: without lobsterman use Qualified Code(s): E11.9 - Type 2 diabetes mellitus without complications (2) Hypertension Hypertension type: essential hypertension Qualified Code(s): I10 - Essential (primary) hypertension
[2022-06-08] MEDS ORDERED: LANTUS PER UNIT CHARGE SQ SCH (21:00)
[2022-06-08] MEDS: DOCUSATE SODIUM 100 MG CAP PO SCH (21:01)
[2022-06-08] MEDS: ASPIRIN 81 MG ECTAB PO SCH (21:01)
[2022-06-08] MEDS: TAPENTADOL HCL ER 50 MG TABCR PO SCH (21:01)
[2022-06-08] MEDS: SENNA 8.6 MG TAB PO SCH (21:01)
[2022-06-08] MEDS: ACETAMINOPHEN 500 MG TAB PO SCH (21:02)
[2022-06-08] MEDS ORDERED: TRANEXAMIC ACID / 0.7% NACL 1,000 MG/100 ML BAG IV SCH (21:30)
[2022-06-08] MEDS: CEFEPIME 2,000 MG in SYRINGE 0 ML IV SCH (22:11)
[2022-06-08] MEDS: NICOTINE 14 MG/24 HR PATCH TD SCH (22:49)
[2022-06-08] MEDS: rifAMPin 150 MG CAPSULE PO SCH (22:49)
[2022-06-08] MEDS ORDERED: VANCOMYCIN HCL 1,250 MG in SODIUM CHLORIDE 0.9% 250 ML IV SCH (23:00)
[2022-06-09] MEDS: Scopolamine CHECK PATCH PLACEMENT SCH ×4 (00:05→23:05)
[2022-06-09] MEDS: INSULIN ASPART PER UNIT SC SCH ×6 (00:05→21:41)
[2022-06-09] MEDS: oxyCODONE HCL IR 5 MG TAB (IMMEDIATE RELEASE) PO PRN ×3 (00:54→16:14)
[2022-06-09] MEDS: KETOROLAC TROMETHAMINE 15 MG/ML VIAL IV SCH ×4 (01:54→20:21)
[2022-06-09] MEDS ORDERED: VANCOMYCIN HCL 1,250 MG in SODIUM CHLORIDE 0.9% 250 ML IV SCH (02:00)
[2022-06-09] MEDS: SODIUM CHLORIDE 0.9% 1000ML 1,000 ML IV SCH (04:37)
[2022-06-09] MEDS: HYDROmorphone INJ 0.5 MG/0.5 ML SYR IV PRN ×2 (05:38→14:08)
[2022-06-09] MEDS: ACETAMINOPHEN 500 MG TAB PO SCH ×3 (05:38→21:35)
[2022-06-09] MEDS: CEFEPIME 2,000 MG in SYRINGE 0 ML IV SCH ×3 (05:39→21:42)
[2022-06-09] MEDS ORDERED: DOCUSATE SODIUM/SENNA 50/8.6MG TAB PO SCH (09:00)
[2022-06-09] MEDS ORDERED: NON-FORMULARY MEDICATION (Multivitamin Tablet) PO SCH (09:00)
[2022-06-09] MEDS ORDERED: ENALAPRIL MALEATE 10 MG TAB PO SCH ×2 (09:00)
[2022-06-09] MEDS ORDERED: SITagliptin PHOSPHATE 100 MG TAB PO SCH (09:00)
--- NOTE | 2022-06-09 09:15 | Progress Notes ---
DATE OF SERVICE: 06/09/2022. SUBJECTIVE: A 66-year-old gentleman now postoperative day 1 from a resection arthroplasty of the rig ht knee and placement of antibiotic articulating spacer. He is doing reasonably well. He says he feliz s been up and walking some. He says his knee feels actually better than it did before surgery alread y. No chest pain or shortness of breath. Not feeling dizzy or lightheaded. OBJECTIVE: VITAL SIGNS: Temperature 36.8. Vital signs are stable. GENERAL: Shows a pleasant middle-aged male. He is sitting up in bed and looks comfortable. EXTREMITIES: Examination of the right leg reveals a knee immobilizer and dressing to be in place. H e can dorsiflex and plantarflex his foot appropriately. He is neurologically intact. LABORATORY DATA: Labs are pending today. Culture results are all pending. ASSESSMENT: A 66-year-old gentleman postoperative day 1 from resection arthroplasty and placement of articulating antibiotic spacer, doing reasonably well. Pain seems to be controlled. Cultures are p ending. PLAN: 1. DVT prophylaxis includes thigh-high TEDs, SCDs, and aspirin twice a day for 6 weeks. 2. PT/OT. He is weightbearing as tolerated in the knee immobilizer. He will come out of the knee i mmobilizer and work on knee motion from 0-90 degrees maximum over the next 6 weeks. 3. Antibiotic management. We will continue the vancomycin and rifampin for now. Await ID recommend ations for definitive antibiotic management. I think this is likely going to be a culture negative t ype infection situation, so it will have to be empiric antibiotic coverage, most likely. We will get a PICC line placement today. 4. Disposition: He is going to need home IV antibiotics. We need to get his antibiotics squared aw ay and once this is all for figured out, we can hopefully get him home with some home health. Job ID: [id number]
[2022-06-09 09:19] LABS: Hematocrit (blood only) 33.3 % (40.1-51.0); Hemoglobin 11.6 g/dl (14.0-18.0); Mean Corpuscular Hemoglobin 29.7 pg (25.0-34.0); Mean Corpuscular Hgb Conc 34.8 g/dL (32.0-36.0); Mean Corpuscular Volume 85.4 fL (80.0-100.0); Mean Platelet Volume 9.8 fL (9.4-12.4); Platelet Count 199 K/uL (130-400); RDW Coefficient of Variation 12.3 % (11.5-14.5); RDW Standard Deviation 37.6 fL (36.4-46.3); White Blood Count 14.77 K/ul (4.8-10.8)
[2022-06-09] MEDS: ASCORBIC ACID 500 MG TAB PO SCH ×2 (09:31→18:07)
[2022-06-09] MEDS: PANTOprazole 40 MG TAB PO SCH (09:46)
[2022-06-09] MEDS: ASPIRIN 81 MG ECTAB PO SCH ×2 (09:46→20:20)
[2022-06-09] MEDS: rifAMPin 150 MG CAPSULE PO SCH ×2 (09:46→20:20)
[2022-06-09] MEDS: MULTIVITAMIN TAB PO SCH (09:47)
[2022-06-09] MEDS: DOCUSATE SODIUM 100 MG CAP PO SCH ×2 (09:47→20:19)
[2022-06-09] MEDS: TAMSULOSIN HCL 0.4 MG CAP PO SCH (09:48)
[2022-06-09] MEDS: NICOTINE 14 MG/24 HR PATCH TD SCH (09:48)
[2022-06-09 09:50] LABS: BUN Creatinine Ratio 13.9 (10-20); Calcium 7.9 mg/dl (8.5-10.1); Creatinine Clr Calc Pharmacy 75.8 ml/min; Est GFR (African American) 75.9 ml/min; Est GFR (Non-African American) 65.5 ml/min; Potassium 4.2 mmol/L (3.5-5.1)
[2022-06-09] MEDS: PRAVASTATIN SOD 20 MG TAB PO SCH (09:58)
[2022-06-09] MEDS: TAPENTADOL HCL ER 50 MG TABCR PO SCH ×2 (09:59→20:19)
--- NOTE | 2022-06-09 13:36 | Pharmacy Report ---
Pharmacy Glycemic Short Note 2 - Date of Service June 09, 2022 - Glycemic Short BSG Results (Last 24 hours): 06/08/22 06/08/22 06/08/22 15:20 18:14 20:35 Glucose POC Glucose 136 H 120 H 169 H 06/09/22 06/09/22 06/09/22 00:01 03:55 07:52 Glucose POC Glucose 155 H 128 H 149 H 06/09/22 06/09/22 09:06 12:59 Glucose 143 H POC Glucose 119 H OUTPATIENT ANTIDIABETIC REGIMEN: * Sitagliptin 100 mg PO daily HbA1c: 7.9% (04/23/22) ASSESSMENT: * TH is a 66 year old male POD #1 s/p right total knee resection arthroplasty w/ placement of antibiotic spacer * No steroids given in OR * Receiving empiric vancomycin, cefepime, and rifampin for septic right knee infection * BSGs well-controlled thus far with conservative basal and weight-based Novolog * Do not anticipate significant changes today PLAN FOR INPATIENT GLYCEMIC CONTROL: * Hold outpatient oral diabetes medications * Basal insulin * Lantus 10-15 units SC HS * Bolus insulin * NovoLog per scale ACHS or Q6hrs while NPO * Goal Range: Low 110 mg/dL - High 140 mg/dL * Correction Factor: 25 mg/dL/unit * Nutritional / Prandial insulin per carb ratio of 1 unit per 8 grams CHO consumed
--- NOTE | 2022-06-09 13:42 | XRay Report ---
XR chest 1V portable CLINICAL HISTORY: PICC placement. COMPARISON STUDY: 05/13/2022 TECHNIQUE: 1 view of the chest FINDINGS: Single frontal view of the chest demonstrates the cardiomediastinal silhouette to be within normal li mits. Right-sided PICC line has been place with its tip extending into the distal SVC. There is no ev idence for pneumothorax. The lungs are clear of alveolar opacities. There is no evidence for pleural effusion. There is no evidence for vascular congestion. There is no acute osseous pathology. IMPRESSION: 1. No acute cardiopulmonary disease. 2. Status post PICC line placement. ACT 112: Negative or not required by law. Electronically signed by: Kennedy Gates M.D. 06/09/2022 1:41 PM
[2022-06-09] MEDS: VANCOMYCIN HCL 1,000 MG in SODIUM CHLORIDE 0.9% 250 ML IV SCH (14:28)
--- NOTE | 2022-06-09 19:34 | Communication Note ---
Date of Service: June 09, 2022 Chart reviewed, no need for hospitalist to follow along. ID consult pending Pharmacy managing DM Will sign off
[2022-06-09] MEDS: SENNA 8.6 MG TAB PO SCH (20:20)
[2022-06-09] MEDS ORDERED: LANTUS PER UNIT CHARGE SQ SCH (21:00)
[2022-06-10] MEDS: KETOROLAC TROMETHAMINE 15 MG/ML VIAL IV SCH ×3 (01:58→13:46)
[2022-06-10] MEDS: VANCOMYCIN HCL 1,000 MG in SODIUM CHLORIDE 0.9% 250 ML IV SCH ×2 (02:04→13:47)
[2022-06-10] MEDS: oxyCODONE HCL IR 5 MG TAB (IMMEDIATE RELEASE) PO PRN ×2 (03:39→20:02)
[2022-06-10] MEDS: CEFEPIME 2,000 MG in SYRINGE 0 ML IV SCH ×3 (05:20→21:55)
[2022-06-10] MEDS: ACETAMINOPHEN 500 MG TAB PO SCH ×3 (05:21→21:54)
[2022-06-10] MEDS: TAPENTADOL HCL ER 50 MG TABCR PO SCH ×2 (08:11→20:04)
[2022-06-10 08:12] LABS: Creatinine Clr Calc Pharmacy 77.1 ml/min; Est GFR (African American) 77.5 ml/min; Est GFR (Non-African American) 66.9 ml/min
--- NOTE | 2022-06-10 08:14 | Progress Notes ---
DATE OF SERVICE: 06/10/2022. SUBJECTIVE: A 66-year-old gentleman postoperative day 2 from removal of a right knee implant and gricelda cement of antibiotic spacer. He is doing okay. Some pain, but controlled. No chest pain or shortne ss of breath. Not feeling dizzy or lightheaded. OBJECTIVE: VITAL SIGNS: Temperature 37.2. Vital signs are stable. PHYSICAL EXAMINATION: GENERAL: Shows a pleasant middle-aged male. He is lying in bed, looks reasonably comfortable. EXTREMITIES: Examination of the right leg reveals the dressing to be clean, dry and intact. He can dorsiflex and plantarflex his foot appropriately. He can do a straight leg raise. LABORATORY DATA: No new labs. ASSESSMENT: A 66-year-old gentleman postoperative day 2 from removal of a right knee implant and gricelda cement of antibiotic spacer. He is on IV vancomycin. We are just waiting for ID consult. Also on r ifampin. PLAN: 1. DVT prophylaxis includes thigh-high TEDs, SCDs, and aspirin twice a day. 2. PT, OT, weightbear as tolerated. In the knee immobilizer. We are going to work on knee motion 0 -90 only. 3. Antibiotic management. We are just waiting for infectious disease consult and final recommendati ons. He has got a PICC line in place. Once we get final infectious disease IV antibiotic recommenda tions, we can set him up for discharge. Job ID: [id number]
[2022-06-10] MEDS: ASCORBIC ACID 500 MG TAB PO SCH ×2 (08:17→16:33)
[2022-06-10] MEDS: Scopolamine CHECK PATCH PLACEMENT SCH ×2 (08:20→13:58)
[2022-06-10] MEDS: ASPIRIN 81 MG ECTAB PO SCH ×2 (08:26→20:02)
[2022-06-10] MEDS: DOCUSATE SODIUM 100 MG CAP PO SCH ×2 (08:42→20:02)
[2022-06-10] MEDS: MULTIVITAMIN TAB PO SCH (08:42)
[2022-06-10] MEDS: PANTOprazole 40 MG TAB PO SCH (08:43)
[2022-06-10] MEDS: PRAVASTATIN SOD 20 MG TAB PO SCH (08:44)
[2022-06-10] MEDS: rifAMPin 150 MG CAPSULE PO SCH ×2 (08:45→20:01)
[2022-06-10] MEDS: TAMSULOSIN HCL 0.4 MG CAP PO SCH (08:45)
[2022-06-10] MEDS: NICOTINE 14 MG/24 HR PATCH TD SCH (08:48)
[2022-06-10] MEDS: LANTUS PER UNIT CHARGE SQ SCH ×2 (09:13→21:52)
[2022-06-10] MEDS: INSULIN ASPART PER UNIT SC SCH ×4 (09:14→21:51)
--- NOTE | 2022-06-10 14:06 | Pharmacy Report ---
Pharmacy Glycemic Short Note 2 - Date of Service June 10, 2022 - Glycemic Short BSG Results (Last 24 hours): 06/09/22 06/09/22 06/10/22 17:07 20:49 07:54 POC Glucose 158 H 168 H 154 H 06/10/22 12:03 POC Glucose 127 H OUTPATIENT ANTIDIABETIC REGIMEN: * Sitagliptin 100 mg PO daily HbA1c: 7.9% (04/23/22) ASSESSMENT: 06/10/22 * BSGs reasonably well-controlled yesterday, ranging 119-168 mg/dL * Received 35 units of insulin yesterday (15 units of basal and 20 units of prandial/correctional bolus) * Fasting BSG of 154 mg/dL this morning, will increase basal insulin today * Continues on broad spectrum antibiotics 06/09/22 * TH is a 66 year old male POD #1 s/p right total knee resection arthroplasty w/ placement of antibiotic spacer * No steroids given in OR * Receiving empiric vancomycin, cefepime, and rifampin for septic right knee infection * BSGs well-controlled thus far with conservative basal and weight-based Novolog * Do not anticipate significant changes today PLAN FOR INPATIENT GLYCEMIC CONTROL: * Hold outpatient oral diabetes medications * Basal insulin * Lantus 10 units SC BID * Bolus insulin * NovoLog per scale ACHS or Q6hrs while NPO * Goal Range: Low 110 mg/dL - High 140 mg/dL * Correction Factor: 25 mg/dL/unit * Nutritional / Prandial insulin per carb ratio of 1 unit per 8 grams CHO consumed
[2022-06-10] MEDS: HYDROmorphone INJ 0.5 MG/0.5 ML SYR IV PRN (17:53)
[2022-06-10] MEDS: SENNA 8.6 MG TAB PO SCH (20:01)
[2022-06-11] MEDS: Scopolamine CHECK PATCH PLACEMENT SCH
[2022-06-11] MEDS: HYDROmorphone INJ 0.5 MG/0.5 ML SYR IV PRN ×2 (00:24→06:27)
[2022-06-11] MEDS: VANCOMYCIN HCL 1,000 MG in SODIUM CHLORIDE 0.9% 250 ML IV SCH ×2 (02:28→15:10)
[2022-06-11] MEDS: oxyCODONE HCL IR 5 MG TAB (IMMEDIATE RELEASE) PO PRN (02:31)
[2022-06-11] MEDS: ACETAMINOPHEN 500 MG TAB PO SCH ×2 (06:23→14:39)
[2022-06-11] MEDS: CEFEPIME 2,000 MG in SYRINGE 0 ML IV SCH ×2 (06:23→14:42)
[2022-06-11 08:24] LABS: Creatinine Clr Calc Pharmacy 79.2 ml/min; Est GFR (African American) 80.1 ml/min; Est GFR (Non-African American) 69.1 ml/min
--- NOTE | 2022-06-11 09:15 | Progress Notes ---
DATE OF SERVICE: 06/11/2022. SUBJECTIVE: A 66-year-old gentleman now postop day 3 from a resection arthroplasty and placement of antibiotic spacer. He is doing reasonably well. Pain is controlled. Just going to wait for antibio tic recommendations per ID. OBJECTIVE: VITAL SIGNS: Temperature 36.9. Vital signs are stable. GENERAL: Shows a pleasant middle-aged male. He is walking around his room in his knee immobilizer a nd getting around reasonably well. EXTREMITIES: His legs are well aligned. Dressing is clean, dry and intact. He can do a straight le g raise with quite a bit of effort. He is neurologically intact. LABORATORY DATA: Culture results: Culture results are no growth from all cultures so far. ASSESSMENT: A 66-year-old gentleman postoperative day 3 from resection arthroplasty and placement of antibiotic spacer. He is doing pretty well. We are just really waiting for final ID antibiotic rec ommendations. PLAN: 1. DVT prophylaxis includes thigh-high TEDs, SCDs, and aspirin twice a day. 2. PT, OT, weightbear as tolerated. In the knee immobilizer. Work on knee motion 0-90 degrees. 3. Pain control, doing okay with current pain regimen. 4. IV antibiotics. Just waiting for ID recommendations. Job ID: [id number]
[2022-06-11] MEDS: INSULIN ASPART PER UNIT SC SCH ×2 (09:19→13:11)
[2022-06-11] MEDS: LANTUS PER UNIT CHARGE SQ SCH (09:22)
[2022-06-11] MEDS: ASCORBIC ACID 500 MG TAB PO SCH (09:31)
[2022-06-11] MEDS: ASPIRIN 81 MG ECTAB PO SCH (09:41)
[2022-06-11] MEDS: DOCUSATE SODIUM 100 MG CAP PO SCH (09:42)
[2022-06-11] MEDS: MULTIVITAMIN TAB PO SCH (09:43)
[2022-06-11] MEDS: PRAVASTATIN SOD 20 MG TAB PO SCH (09:45)
[2022-06-11] MEDS: PANTOprazole 40 MG TAB PO SCH (09:45)
[2022-06-11] MEDS: rifAMPin 150 MG CAPSULE PO SCH (09:45)
[2022-06-11] MEDS: TAMSULOSIN HCL 0.4 MG CAP PO SCH (09:46)
[2022-06-11] MEDS: TAPENTADOL HCL ER 50 MG TABCR PO SCH (09:46)
[2022-06-11] MEDS: NICOTINE 14 MG/24 HR PATCH TD SCH (10:03)
[2022-06-11] MEDS ORDERED: VANCOMYCIN LEVEL ONE (13:30)
--- NOTE | 2022-06-11 13:47 | Pharmacy Report ---
Pharmacy Glycemic Short Note 2 - Date of Service June 11, 2022 - Glycemic Short BSG Results (Last 24 hours): 06/10/22 06/10/22 06/11/22 17:10 20:57 08:01 POC Glucose 161 H 135 H 131 H 06/11/22 12:00 POC Glucose 157 H OUTPATIENT ANTIDIABETIC REGIMEN: * Sitagliptin 100 mg PO daily HbA1c: 7.9% (04/23/22) ASSESSMENT: 06/11/22: * Patient received total 34 units of insulin yesterday; 20 units basal and 14 units bolus. * Fasting BSG today was 131 mg/dl. Continued basal insulin the same as yesterday. * BSGs yesterday were well controlled and ranging between 127-161 mg/dl. Continued with same Novolog parameters today. 06/10/22 * BSGs reasonably well-controlled yesterday, ranging 119-168 mg/dL * Received 35 units of insulin yesterday (15 units of basal and 20 units of prandial/correctional bolus) * Fasting BSG of 154 mg/dL this morning, will increase basal insulin today * Continues on broad spectrum antibiotics 06/09/22 * TH is a 66 year old male POD #1 s/p right total knee resection arthroplasty w/ placement of antibiotic spacer * No steroids given in OR * Receiving empiric vancomycin, cefepime, and rifampin for septic right knee infection * BSGs well-controlled thus far with conservative basal and weight-based Novolog * Do not anticipate significant changes today PLAN FOR INPATIENT GLYCEMIC CONTROL: * Hold outpatient oral diabetes medications * Basal insulin * Lantus 10 units SC BID * Bolus insulin * NovoLog per scale ACHS or Q6hrs while NPO * Goal Range: Low 110 mg/dL - High 140 mg/dL * Correction Factor: 25 mg/dL/unit * Nutritional / Prandial insulin per carb ratio of 1 unit per 8 grams CHO consumed
[2022-06-11] MEDS ORDERED: CEFEPIME 2,000 MG in SYRINGE 0 ML IV SCH (14:30)
[2022-06-12] MEDS ORDERED: VANCOMYCIN HCL 1,500 MG in SODIUM CHLORIDE 0.9% 500 ML IV SCH (02:00)
--- NOTE | 2022-06-13 12:26 | Discharge Summary ---
Date of Service June 13, 2022 Discharge Data Consultations 06/08/22 18:03 Consult Hospitalist Routine 06/09/22 08:31 Consult Infectious Diseases Routine Procedures Performed Operation Date: 06/08/22 10:40 Actual Procedures p Right Total Knee Removal with Placement of Antibiotic Spacer(Right) - Marciano Parkinson MD Hospital Course (1) Septic joint of right knee joint: This is a 66 year old patient admitted on 06/08/22 and underwent right knee resection arthroplasty and placement of antibiotic spacer. He tolerated the proc edure well and there were no complications. Transferred to the PACU post op and later to the orthopedic floor for further care. He was given vancomycin and rifampin for antibiotic therapy. He was also given LAURA stockings, SCDs, and aspirin for DVT prophylaxis. Hemoglobin, hematocrit, and vital signs were monitored during his hospital stay and remained stable. Did not require any blood transfusions. There were no complications during his hospital stay. By post op day #3 the patient was tolerating a regular diet, pain was reasonably controlled with oral pain medicine, and he was participating in physical therapy. On post op day #3 the patient was discharged home and set up with home health care. He was seen by [facility] infectious disease service and they recommended IV vancomycin and cefepime for antibiotic therapy. In addition, he was given printed discharge instructions including prescriptions for extra strength tylenol, aspirin, zofran, toradol, flomax, and oxycodone. Continue phys ical therapy, weight bearing as tolerated in the knee immobilizer, range of motion 0-90 degrees. Continue LAURA stockings. Follow up approximately 2 weeks post op or sooner if there are problems or concerns. Coding Level of Care Code None Diagnoses Septic joint of right knee joint M00.9
== END 2022-06-11 17:05 | disposition home or self-care (01) ==
LOC: 3W 08:05 → ASU 08:05 → 3W 06-09 21:04

== ENCOUNTER 2022-08-10 08:13 | Observation (INO) ==
--- NOTE | 2022-08-04 10:20 | Anesthesiology Consultation ---
Date of Service August 04, 2022 Assessment & Plan Chart Review Chart Review: Acceptable Risk for Surgery and Patient NOT seen in Pre Admission Testing Consults Requested none History Surgery Operation Date: 08/10/22 10:40 Proposed Procedures p Right Knee Antibiotic Spacer Removal Conversion to Total Knee Arthroplasty - Marciano Parkinson MD Height/Weight Height: 5 ft 10 in Weight: 97.976 kg Allergies Allergy/AdvReac Type Severity Reaction Status Date / Time diphenhydramine AdvReac Mild Verified 08/03/22 15:14 [From Benadryl] Medications Home Medications Medication Instructions Recorded Confirmed Last Taken pantoprazole 40 mg tablet,delayed 40 mg PO QAM #90 tabs 09/01/21 08/03/22 06/08/22 06:30 release (Protonix) pravastatin 20 mg tablet 20 mg PO QAM #90 tabs 09/01/21 08/03/22 06/08/22 06:30 Medical Marijuana 1 inh inhalation QAM PRN Pain 10/08/21 08/03/22 06/07/22 08:00 sitagliptin 100 mg tablet (Januvia) 100 mg PO QAM 04/23/22 08/03/22 06/06/22 metformin 500 mg tablet,extended 1,000 mg PO QAM 05/11/22 08/03/22 06/06/22 release 24 hr multivitamin 1 tab PO QAM 05/11/22 08/03/22 06/06/22 ramipril 5 mg capsule 5 mg PO QAM 05/11/22 08/03/22 06/06/22 aspirin 81 mg tablet,delayed 81 mg PO QAM 08/03/22 08/03/22 Unknown release (Dionisio Low Dose Aspirin) Past Medical History Medical History (Updated 08/03/22 @ 15:33 by Joselyn Morales) Chronic back pain Diabetes mellitus, type 2 NIDDM Hgb A1C 7.9 on 04/23/22 (Januvia increased per patient) Encounter for pre-operative examination Fatigue GERD (gastroesophageal reflux disease) Mild Well controlled and stable Hiatal hernia History of colon polyps History of COVID-19 12/2021, "never actually tested, but had all classic symptoms of covid">resolved. Hyperlipidemia Hypertension Knee pain, right Obesity (BMI 30-39.9) Osteoarthritis Painful total knee replacement, right Sleep apnea CPAP Past Family History Family History Father Cancer Mother Coronary arteriosclerosis Diabetes Essential hypertension Brother Prostate cancer Myocardial infarction Denies family history of Ovarian cancer Breast cancer Lung cancer Colorectal cancer Past Surgical History Surgical History History of carpal tunnel release LEFT History of colonoscopy with polypectomy History of esophagogastroduodenoscopy (EGD) History of lumbar spinal fusion History of total knee replacement right History of total right knee replacement Hx of cholecystectomy Social History Smoking Status: Former smoker tobacco type: smokeless tobacco Do You Dip or Chew Tobacco: Yes (advised) Smoking End Date: "only a little as a teenager" Hx Alcohol Use: Yes Alcohol type: beer alcohol intake frequency: holidays/special occasions only Hx Substance Use: Yes (medical marijuana) substance use type: marijuana Substance Use Type Other:: medical marijuana> qam vapes > for pain Last Used Substance Other:: tincture-08/03/22 Testing Laboratory Results Laboratory Tests 07/26/22 10:36 WBC 8.80 Hgb 15.2 Hct 45.7 Plt Count 346 Electrocardiogram Date: 05/13/22 Findings: + NSR @ Chest X-Ray Date: 06/09/22 Findings: + NAD
[~2022-08-10 08:13] MED LIST changes: -DAKIN'S SOLN 0.5% FULL STRENGTH 473ML BTL EXT ONE; -EPINEPHrine INJ 1 MG/ML AMP ONE; +LR 15ML/HR IV SCH; -LR 500ML BOLUS, THEN 15ML/HR IV SCH; -TRANEXAMIC ACID 1,000 MG **IV Intra-op IV SCH; +TRANEXAMIC ACID 1,000 MG **IV Pre-op IV SCH
--- NOTE | 2022-08-10 08:55 | History & Physical Bridge Note ---
Date of Service August 10, 2022 History & Physical Bridge Note I have examined the patient, reviewed the History & Physical and in the interval since the performance of the History & Physical I have noted the following changes of clinical significance: no changes noted
[2022-08-10] MEDS ORDERED: PROPOFOL IV EMULSION 10 MG/ML 20 ML VIAL IV ONE ×2 (09:22→11:06)
[2022-08-10] MEDS ORDERED: MIDAZOLAM HCL 1 MG/ML 2ML VIAL ONE ×2 (09:22)
[2022-08-10] MEDS ORDERED: ATROPINE SULFATE 0.1 MG/ML 10ML SYR IV PRN ×2 (10:04→14:32)
[2022-08-10] MEDS ORDERED: ONDANSETRON INJ 2 MG/ML 2 ML VIAL IV PRN ×3 (10:04→16:18)
[2022-08-10] MEDS ORDERED: fentaNYL citrate 100 MCG/2 ML VIAL IV PRN (10:04)
[2022-08-10] MEDS ORDERED: ePHEDrine sulfate 50 MG/ML AMP IV PRN ×2 (10:04→14:32)
[2022-08-10] MEDS ORDERED: BUPIVACAINE/EPINEPHRINE 0.25% 1:200,000 30 ML VIAL ONE (10:59)
[2022-08-10] MEDS ORDERED: SODIUM CHLORIDE 0.9% PF 50 ML VIAL ONE (10:59)
[2022-08-10] MEDS ORDERED: BUPIVACAINE LIPOSOME 1.3% 266 MG/20 ML VIAL ONE (10:59)
[2022-08-10] MEDS ORDERED: VANCOMYCIN HCL 1000MG/20ML VIAL ONE ×2 (11:03→13:38)
[2022-08-10] MEDS ORDERED: fentaNYL citrate 100 MCG/2 ML VIAL ONE ×3 (11:07→12:31)
[2022-08-10] MEDS ORDERED: ONDANSETRON INJ 2 MG/ML 2 ML VIAL ONE (11:58)
[2022-08-10] MEDS ORDERED: DEXAMETHASONE SOD INJ 4 MG/ML VIAL ONE (11:58)
[2022-08-10] MEDS ORDERED: LABETALOL HCL IV 5 MG/ML 20ML IV ONE (12:41)
[2022-08-10] MEDS ORDERED: KETAMINE 50 MG/5 ML SYRINGE ONE (13:16)
[2022-08-10] MEDS ORDERED: KETOROLAC 30 MG/ML VIAL ONE (13:41)
[2022-08-10] MEDS ORDERED: HYDROmorphone INJ 2 MG/ML SYR/VIAL IV PRN (14:32)
--- NOTE | 2022-08-10 14:38 | Operative Report ---
PG Post Operative Report Pre & Post Diagnosis Operation Date: 08/10/22 10:40 Pre-Op Diagnosis: Right Knee Antibiotic Spacer for Infected TKR Post-Op Diagnosis: Right Knee Antibiotic Spacer removal and Revision TKR I identified the patient and participated in the time-out.: Yes Procedure Operation Date: 08/10/22 10:40 Actual Procedures p Right Knee Antibiotic Spacer Removal with Conversion to Total Knee Arthroplasty(Right) - Marciano Parkinson MD Surgeon Marciano Parkinson MD Mobile Health Vehicle Operator Izaiah Mathews PA-C Estimated Blood Loss 200 Findings Consistent with Post-Op Diagnosis Operative findings revealed antibiotic spacer in place. There is no clinical signs of infection. No purulence. Fairly minimal joint effusion. The frozen section showed essentially 0 polys per high-power field there was 1 area with a soft 25 polys per high-power field and that was isolated in 1 spot on the year. Specimens Right knee synovium sent for frozen section and to the right knee joint fluid sent for stat gram stain, aerobic, anaerobic culture. Anesthesia Type General Regional Complications none Disposition Accompanied Patient To Recovery: No Indications Patient is 66-year-old gentleman who is about 4 years out from initial knee replacement. Never really got great results from this. He said persistent pain discomfort and intermittent swelling since. We treated conservatively without relief. He has gone through extensive evaluations which suggested infection but cultures never grew anything. We went back to the operating room 2 months ago and did get a removal of his implant and placement of antibiotic spacer. He did have 1 culture that grew out Propionibacterium acne. He has been through a course of antibiotic treatment. Days had labs that show decreasing sed rate and C-reactive protein but not normalized. His exam was quite benign. He was now indicated for antibiotic room spacer removal and placement of a revision knee arthroplasty. Description of Procedure Operative implants consisted of: 1. Biomet Vanguard III 160 size 65 right femoral component with a 80 mm x 17 mm stem with a 2.5 mm offset and 5 mm medial distal and 5 mm lateral distal augments. 2. Biomet Vanguard III 160 size 71 tibial tray with a 16 x 80 mm stem with a 5 mm offset and small cruciate wing. 3. 16mm posterior stabilized polyethylene insert. The patient was taken the operating, identified, and placed on the operating table supine position but all contact areas were properly padded. IV antibiotics were provided by the anesthesia team. An abductor canal block had provided in the holding area. A spinal anesthetic had been attempted but unsuccessful. A general anesthetic was implemented. Right Tetrick was then placed in the right lower extremities and prepped and draped in usual sterile fashion. The right leg was elevated exsanguinated with use of an Esmarch in terms playset 300 mmHg. An anterior approach of the right knee was then performed through a longitudinal incision using the previous incision. Sharp dissection Through subcutaneous tissue down the extensor mechanism. A medial parapatellar arthrotomy incision was made. The fluid was sent off for stat gram stain, aerobic, anaerobic culture. Subperiosteal dissection was carried out medially. A complete synovectomy of the suprapatellar pouch and medial lateral gutters was performed. This tissue was sent off for pathology. It was sent for frozen section revealed essentially no polys per high-power field. They did report 1 area where there was 25 polys per high-power field. After looking at his knee and evaluating the situation I felt the risk of a residual infection was small so we elected to proceed. With the use of osteotomes and a saw this cement spacer was removed without difficulty. The IM dowels were removed as well. Attention was first drawn to the tibia. The tibia was reamed sequentially up to a size 15. The IM cutting guide was placed and the proximal tibial cut was removed made to remove 2 mm of bone from the most prominent part. We got good cancellous bone to fix into. We then sized the tibia to a size 71. Was prepared for a 5 mm offset stem and a small cruciate wing. The trial implant was assembled and fit nicely. Attention drawn the femur. The distal femur was removed. We used a saw to break up the interface and an osteotome to remove the cement spacer. The distal femur was then entered with the drill. I then reamed up to a size 17. We then cut the distal femur to remove just a small area of bone both medially and lateral had a 5 degree angle. The femur was then sized to a size 65. The AP cutting block was prepared and placed using a 2.5 mm offset stem to maximize coverage. It was pinned in place. The anterior cut, anterior chamfer, posterior cut, posterior chamfer cuts were made. The implant was assembled. The box cutting guide was placed and the box cut was made. The constructive trial was then placed and fit nicely. We then trialed the knee and it was still a fairly lax in extension but fit nicely in flexion with a 16mm polyethylene. Therefore we used 5 mm distal augments in order to tighten up the extension gap. With the 5 augments it felt well balanced in flexion extension. We elected not to resurface the patella. We proceeded with placing these implants. All trial implants were removed. Irrigated the wound extensively. We did inject locally with 100 cc of combination of 20 cc of Exparel, 30 cc normal saline, 50 cc of quarter percent Marcaine with epinephrine.. They irrigated the wound extensively. We did curette the canals of all fibrous tissue. A double batch of Palacos G cement was then mixed with 2 g of vancomycin. We then cemented the metaphyseal and surface of the implants in place then placed a 16 mm posterior stabilized insert. Knee was brought out in full extension until cement hardened. Final cement check was then performed. The tourniquet was let down for final turn time 116 minutes. Hemostasis assured use electrocautery. The wound was once again irrigated. We spent quite a bit of time cauterizing all vessels. Before closure, we did place 1 g of vancomycin powder and in the depth of the wound to maximize antibiotic coverage. The extensor mechanism closed with #1 PDS suture in a [id number] fashion. Extensor mechanism checked found to be intact. Subcutaneous tissue then closed with 2 Dexon suture in a buried interrupted fashion skin was closed with skin jyothi. Leg was then cleaned and dried a sterile dressing was Xeroform, 4 x 4's, sterile cast padding, Boris bandage were applied. Patient then brought out of general incision transferred to the recovery room in stable condition. The patient tolerated procedure well and there were no complications. Izaiah Mathews, my physician parts room assistant, was present for the entire procedure. His assistance was essential and required for appropriate patient positioning, prepping and draping, surgical exposure, performing the technical details of the operation, placement the implants, closure of the wound, and placement of the sterile bandage. I attest to the content of the Intraoperative Record and any orders documented therein. Any exceptions are noted below.
[2022-08-10] MEDS ORDERED: MEPERIDINE HCL 25 MG/ML CARP/VIAL IV PRN (14:41)
[2022-08-10] MEDS ORDERED: MEPERIDINE HCL 25 MG/ML CARP/VIAL ONE (14:43)
--- NOTE | 2022-08-10 15:09 | Anesthesiology Progress Note ---
Date of Service August 10, 2022 Anesthesia Post Procedure Vital Signs Vital Signs: Temp Pulse Pulse Resp BP Pulse Ox O2 Del Method 08/10/22 15:00 75 15 150/86 H 97 Room Air 08/10/22 14:50 79 18 165/83 H 99 Oxymask 08/10/22 14:40 83 17 158/83 H 97 Oxymask 08/10/22 14:31 36.0 C L 83 14 159/100 H 94 Oxymask 08/10/22 08:41 36.9 C 63 18 175/82 H 98 Room Air O2 Flow Rate 08/10/22 15:00 08/10/22 14:50 4 08/10/22 14:40 9 08/10/22 14:31 9 08/10/22 08:41 Pain Intensity Right Knee: Pain Intensity: 2 Transfer of Care Handoff Completed per policy Notes Mental Status: alert / awake / arousable Patient Amnestic to Procedure: Yes Nausea / Vomiting: adequately controlled Pain: adequately controlled Airway Patency, RR, SpO2: stable & adequate BP & HR: stable & adequate Hydration State: stable & adequate Anesthetic Complications: no major complications apparent and Pt Satisfied with anesthetic care Notes: The patient is awake and comfortable.
[2022-08-10] MEDS: fentaNYL citrate 100 MCG/2 ML VIAL IV PRN ×2 (15:10→15:19)
--- NOTE | 2022-08-10 15:21 | XRay Report ---
XR knee RT 1 or 2V routine CLINICAL HISTORY: Postoperative evaluation. COMPARISON: Right knee radiographs August 05, 2022. FINDINGS: Revision right knee arthroplasty is noted. There is no periprosthetic fracture. There are skin jyothi. There are no unexpected radiopaque foreign bodies. IMPRESSION: Expected findings following revision total right knee arthroplasty. ACT 112: Negative or not required by law. Electronically signed by: Fernando Ramirez M.D. 08/10/2022 3:18 PM
[2022-08-10] MEDS ORDERED: DEXTROSE 50% 50 ML SYRINGE IV PRN (16:18)
[2022-08-10] MEDS ORDERED: METOCLOPRAMIDE HCL INJ 5 MG/ML 2 ML VIAL IV PRN (16:18)
[2022-08-10] MEDS ORDERED: ALUMINUM/MAGNESIUM SUSP 30 ML UDC PO PRN (16:18)
[2022-08-10] MEDS ORDERED: CARBOHYDRATES FOR HYPOGLYCEMIA PO PRN (16:18)
[2022-08-10] MEDS ORDERED: HYDROmorphone INJ 0.5 MG/0.5 ML SYR IV PRN (16:18)
[2022-08-10] MEDS ORDERED: bisacodyL 10 MG SUPP PR PRN (16:18)
[2022-08-10] MEDS ORDERED: PHARMACY GLYCEMIC MGMT CONSULT PRN (16:18)
[2022-08-10] MEDS ORDERED: TAMSULOSIN HCL 0.4 MG CAP PO PRN (16:18)
[2022-08-10] MEDS ORDERED: NALOXONE HCL 0.4 MG/1 ML VIAL/CARP IV PRN (16:18)
[2022-08-10] MEDS ORDERED: NON-FORMULARY MEDICATION (Medical Marijuana 1 PUFFS) INH PRN (16:18)
[2022-08-10] MEDS ORDERED: MAGNESIUM HYDROXIDE SUSP 30 ML UDC PO PRN (16:18)
[2022-08-10] MEDS ORDERED: GLUCOSE 40% GEL 15 GM TUBE PO PRN (16:18)
[2022-08-10] MEDS ORDERED: GLUCAGON FOR INJ 1 MG VIAL SQ PRN (16:18)
[2022-08-10] MEDS ORDERED: GLUCOSE 10 TAB/TUBE PO PRN (16:18)
[2022-08-10] MEDS ORDERED: ONDANSETRON 4 MG OD TAB PO PRN (16:47)
[2022-08-10] MEDS: Scopolamine CHECK PATCH PLACEMENT SCH ×2 (17:25→23:01)
[2022-08-10] MEDS: KETOROLAC TROMETHAMINE 15 MG/ML VIAL IV SCH ×2 (17:26→23:01)
[2022-08-10] MEDS ORDERED: PNEUMOCOCCAL POLYSACCHARIDES 25 MCG/0.5 ML VIAL/SYR IM ONE (18:00)
[2022-08-10] MEDS: ASCORBIC ACID 500 MG TAB PO SCH (18:14)
[2022-08-10] MEDS: INSULIN ASPART PER UNIT SC SCH ×2 (18:16→21:07)
--- NOTE | 2022-08-10 19:31 | Pharmacy Report ---
Pharmacy Glycemic Short Note 2 - Date of Service August 10, 2022 - Glycemic Short BSG Results (Last 24 hours): 08/10/22 08/10/22 08/10/22 08:41 14:34 16:56 POC Glucose 135 H 150 H 155 H OUTPATIENT ANTIDIABETIC REGIMEN: * Sitagliptin 100 mg PO qAM * Metformin 1000 mg PO AM * A1c = 7.9% ASSESSMENT: * Beka is a 66 yo T2DM s/p Right Knee Antibiotic Spacer Removal with Conversion to Total Knee Arthroplasty * Patient has demonstrated adequate glycemic control thus far today. Will initiate novolog ACHS based on weight/stress of 2. Will hold off on basal insulin until additional BSG data is available. * Can likely resume oral anti-diabetic home meds on 10/12 AM if patient is tolerating an oral diet. PLAN FOR INPATIENT GLYCEMIC CONTROL: * Hold outpatient oral diabetes medications * Basal insulin * none at this time * Bolus insulin * NovoLog per scale ACHS or Q6hrs while NPO * Goal Range: Low 110 mg/dL - High 140 mg/dL * Correction Factor: 25 mg/dL/unit * Nutritional / Prandial insulin per carb ratio of 1 unit per 8 grams CHO consumed
[2022-08-10] MEDS: oxyCODONE HCL IR 5 MG TAB (IMMEDIATE RELEASE) PO PRN (19:45)
[2022-08-10] MEDS ORDERED: TRANEXAMIC ACID / 0.7% NACL 1,000 MG/100 ML BAG IV SCH (20:30)
[2022-08-10] MEDS: ceFAZolin 2000MG 2,000 MG/15 ML SYR IV SCH (20:32)
[2022-08-10] MEDS: DOCUSATE SODIUM/SENNA 50/8.6MG TAB PO SCH (20:33)
[2022-08-10] MEDS: ASPIRIN 81 MG ECTAB PO SCH (20:33)
[2022-08-10] MEDS: SODIUM CHLORIDE 0.9% 1000ML 1,000 ML IV SCH (20:39)
[2022-08-10] MEDS ORDERED: Nursing to Pharmacy Communication SCH (20:45)
[2022-08-10] MEDS ORDERED: DOCUSATE SODIUM 100 MG CAP PO SCH (21:00)
[2022-08-10] MEDS ORDERED: SENNA 8.6 MG TAB PO SCH (21:00)
[2022-08-10] MEDS ORDERED: NON-FORMULARY MEDICATION (Cefadroxil 500 mg capsule) PO SCH (21:00)
[2022-08-10] MEDS: ACETAMINOPHEN 500 MG TAB PO SCH (21:08)
[2022-08-11] MEDS: oxyCODONE HCL IR 5 MG TAB (IMMEDIATE RELEASE) PO PRN ×3 (03:13→19:00)
[2022-08-11] MEDS ORDERED: COUGH DROP (SUGAR FREE) LOZ 24 LOZ/1 BOX BUCCAL ONE (03:15)
[2022-08-11] MEDS: ceFAZolin 2000MG 2,000 MG/15 ML SYR IV SCH ×3 (03:16→21:42)
[2022-08-11] MEDS: SODIUM CHLORIDE 0.9% 1000ML 1,000 ML IV SCH (03:29)
[2022-08-11] MEDS: ACETAMINOPHEN 500 MG TAB PO SCH ×3 (05:11→21:44)
[2022-08-11] MEDS: KETOROLAC TROMETHAMINE 15 MG/ML VIAL IV SCH ×3 (05:11→17:57)
[2022-08-11 06:04] LABS: Hematocrit (blood only) 30.8 % (40.1-51.0); Hemoglobin 10.5 g/dl (14.0-18.0); Mean Corpuscular Hemoglobin 29.2 pg (25.0-34.0); Mean Corpuscular Hgb Conc 34.1 g/dL (32.0-36.0); Mean Corpuscular Volume 85.6 fL (80.0-100.0); Mean Platelet Volume 10.1 fL (9.4-12.4); Platelet Count 235 K/uL (130-400); RDW Standard Deviation 37.3 fL (36.4-46.3); White Blood Count 13.86 K/ul (4.8-10.8)
[2022-08-11 06:37] LABS: BUN Creatinine Ratio 12.8 (10-20); Calcium 8.5 mg/dl (8.5-10.1); Est GFR (African American) 55.5 ml/min; Est GFR (Non-African American) 47.9 ml/min; Potassium 4.1 mmol/L (3.5-5.1)
[2022-08-11] MEDS ORDERED: LANTUS PER UNIT CHARGE SQ ONE (08:00)
[2022-08-11] MEDS: PANTOprazole 40 MG TAB PO SCH (08:34)
[2022-08-11] MEDS: MULTIVITAMIN TAB PO SCH (08:34)
[2022-08-11] MEDS: ENALAPRIL MALEATE 10 MG TAB PO SCH (08:34)
[2022-08-11] MEDS: ASPIRIN 81 MG ECTAB PO SCH ×2 (08:35→21:42)
[2022-08-11] MEDS: DOCUSATE SODIUM/SENNA 50/8.6MG TAB PO SCH ×2 (08:35→21:43)
[2022-08-11] MEDS: PRAVASTATIN SOD 20 MG TAB PO SCH (08:35)
[2022-08-11] MEDS: Scopolamine CHECK PATCH PLACEMENT SCH ×2 (08:36→17:55)
[2022-08-11] MEDS: INSULIN ASPART PER UNIT SC SCH ×4 (08:47→22:00)
[2022-08-11] MEDS ORDERED: PNEUMOCOCCAL POLYSACCHARIDES 25 MCG/0.5 ML VIAL/SYR IM ONE (09:00)
[2022-08-11] MEDS ORDERED: SITagliptin PHOSPHATE 100 MG TAB PO SCH (09:00)
[2022-08-11] MEDS ORDERED: NON-FORMULARY MEDICATION (Multivitamin Tablet) PO SCH (09:00)
[2022-08-11] MEDS: ASCORBIC ACID 500 MG TAB PO SCH ×2 (09:46→17:56)
--- NOTE | 2022-08-11 12:33 | Pharmacy Report ---
Pharmacy Glycemic Short Note 2 - Date of Service August 11, 2022 - Glycemic Short BSG Results (Last 24 hours): 08/10/22 08/10/22 08/10/22 14:34 16:56 20:55 Glucose POC Glucose 150 H 155 H 204 H 08/11/22 08/11/22 08/11/22 05:34 07:37 11:59 Glucose 169 H POC Glucose 181 H 118 H OUTPATIENT ANTIDIABETIC REGIMEN: * Sitagliptin 100 mg PO qAM * Metformin 1000 mg PO AM A1c = 7.9% (05/05/22) ASSESSMENT: 08/11/22: * BSGs slightly elevated postoperatively, fasting BSG of 181 mg/dL this morning * Will order one-time Lantus dose this morning * SCr appears elevated from baseline at 1.49 mg/dL (~1-1.1 mg/dL at baseline) * Will hold off on antidiabetic home meds at this time 08/10/22: * Beka is a 66 yo T2DM s/p Right Knee Antibiotic Spacer Removal with Conversion to Total Knee Arthroplasty * Patient has demonstrated adequate glycemic control thus far today. Will initiate novolog ACHS based on weight/stress of 2. Will hold off on basal insulin until additional BSG data is available. * Can likely resume oral anti-diabetic home meds on 10 AM if patient is tolerating an oral diet. PLAN FOR INPATIENT GLYCEMIC CONTROL: * Hold outpatient oral diabetes medications * Basal insulin * Lantus 15 units SC x 1 this morning * Reassess in AM * Bolus insulin * NovoLog per scale ACHS or Q6hrs while NPO * Goal Range: Low 110 mg/dL - High 140 mg/dL * Correction Factor: 25 mg/dL/unit * Nutritional / Prandial insulin per carb ratio of 1 unit per 8 grams CHO consumed
--- NOTE | 2022-08-11 14:03 | Progress Notes ---
DATE OF SERVICE: 08/11/2022 SUBJECTIVE: A 66-year-old gentleman postoperative day 1 from removal of antibiotic spacer and placem ent of a revision knee replacement. He is doing pretty well. Pain is controlled. He has had a enrique le bit of drainage from the incision site. Dressing has been reinforced. No chest pain or shortness of breath. Not feeling dizzy or lightheaded. OBJECTIVE: VITAL SIGNS: Temperature 36.7. Vital signs are stable. PHYSICAL EXAMINATION: GENERAL: Shows a pleasant middle-aged male. He is sitting up in bed and talking to his , looks comfortable. LUNGS: Clear to auscultation. HEART: Regular rate and rhythm. ABDOMEN: Soft, nontender, nondistended. EXTREMITIES: Grossly neurovascularly intact except as follows; examination of the right leg reveals the dressing to be intact. I do not see any drainage on the current dressing. He can dorsiflex and plantarflex his foot appropriately. Cannot quite do a straight leg raise. LABORATORY DATA: Hemoglobin 10.5. Hematocrit 30.8. White cell count 13.86. Electrolytes are stabl e. Mildly increased creatinine. Culture results are still pending, no growth to date. ASSESSMENT: A 66-year-old gentleman postoperative day 1 from removal of antibiotic spacer and placem ent of a revision knee arthroplasty, doing pretty well. His pain is controlled. He is neurologicall y intact. Creatinine is a little elevated. We will follow this along. PLAN: 1. DVT prophylaxis includes thigh-high TEDs, SCDs, and aspirin twice a day. 2. PT/OT, weightbear as tolerated. Right total knee protocol. 3. Pain control, doing okay with current pain regimen. 4. Antibiotics. We are going to continue on postoperative antibiotics for infection prophylaxis. 5. Disposition: Plan is to discharge to home with some home health once medically stable and gettin g around safely and pain controlled, likely tomorrow. Job ID: [id number]
[2022-08-11] MEDS ORDERED: Nursing to Pharmacy Communication SCH (19:45)
[2022-08-12] MEDS: Scopolamine CHECK PATCH PLACEMENT SCH ×2 (00:02→08:31)
[2022-08-12] MEDS: oxyCODONE HCL IR 5 MG TAB (IMMEDIATE RELEASE) PO PRN ×2 (03:18→10:35)
[2022-08-12] MEDS: ceFAZolin 2000MG 2,000 MG/15 ML SYR IV SCH ×2 (03:19→12:06)
[2022-08-12] MEDS: ACETAMINOPHEN 500 MG TAB PO SCH (06:00)
[2022-08-12 07:23] LABS: BUN Creatinine Ratio 11.9 (10-20); Calcium 8.5 mg/dl (8.5-10.1); Creatinine Clr Calc Pharmacy 63.4 ml/min; Est GFR (African American) 63.1 ml/min; Est GFR (Non-African American) 54.4 ml/min; Potassium 3.8 mmol/L (3.5-5.1)
--- NOTE | 2022-08-12 08:20 | Progress Notes ---
DATE OF SERVICE: 08/12/2022. SUBJECTIVE: A 66-year-old gentleman now postop day 2 from removal of antibiotic spacer and placement of a revision knee replacement. He is doing pretty well. Pain is controlled. Therapy went pretty well yesterday. OBJECTIVE: VITAL SIGNS: Temperature 36.7. Vital signs are stable. PHYSICAL EXAMINATION: GENERAL: Shows a pleasant middle-aged male. He is sitting up in bed and looks pretty comfortable. EXTREMITIES: Examination of the right leg reveals the leg to be well aligned. Dressing is clean, dr y and intact. There is no drainage on it currently. He can dorsiflex and plantarflex his foot appro priately. He is neurologically intact. LABORATORY DATA: Culture results show no growth to date. ASSESSMENT: A 66-year-old gentleman postoperative day 2 from a right knee removal of antibiotic spac er and placement of a revision knee arthroplasty. He is doing pretty well. Pain is controlled. His cultures have been no growth. PLAN: 1. DVT prophylaxis includes thigh-high TEDs, SCDs, and aspirin twice a day. 2. PT, OT, weightbear as tolerated. Right total knee protocol. 3. Pain control, doing okay with current pain regimen. 4. Infection. We are going to keep him on cefadroxil for at least the next month. We will likely f ollow his sed rate and C-reactive protein over time. 5. Disposition: Plan to discharge to home likely with some home health later today. Job ID: [id number]
[2022-08-12] MEDS ORDERED: metFORMIN HCL 500 MG TAB PO SCH (08:30)
[2022-08-12] MEDS: ASCORBIC ACID 500 MG TAB PO SCH (08:31)
[2022-08-12] MEDS: PRAVASTATIN SOD 20 MG TAB PO SCH (08:32)
[2022-08-12] MEDS: PANTOprazole 40 MG TAB PO SCH (08:32)
[2022-08-12] MEDS: MULTIVITAMIN TAB PO SCH (08:32)
[2022-08-12] MEDS: ASPIRIN 81 MG ECTAB PO SCH (08:32)
[2022-08-12] MEDS: DOCUSATE SODIUM/SENNA 50/8.6MG TAB PO SCH (08:33)
[2022-08-12] MEDS: ENALAPRIL MALEATE 10 MG TAB PO SCH (08:33)
[2022-08-12] MEDS: INSULIN ASPART PER UNIT SC SCH (08:44)
[2022-08-12] MEDS ORDERED: LANTUS PER UNIT CHARGE SQ ONE (09:00)
--- NOTE | 2022-08-15 07:12 | Discharge Summary ---
Date of Service August 15, 2022 Discharge Data Procedures Performed Operation Date: 08/10/22 10:40 Actual Procedures p Right Knee Antibiotic Spacer Removal with Conversion to Total Knee Arthroplasty(Right) - Marciano Parkinson MD Hospital Course (1) Status post revision of total knee replacement: This is a 66 year old patient admitted on 08/10/22 and underwent removal of antibiotic spacer/conversion to revision total knee replacement. He tolerated the procedure well and there were no complications. Transferred to the PACU post op and later to the orthopedic floor for further care. He was given ancef for antibiotic prophylaxis. He was also given LAURA stockings, SCDs, and aspirin for DVT prophylaxis. Hemoglobin, hematocrit, and vital signs were monitored during his hospital stay and remained stable. Did not require any blood transfusions. There were no complications during his hospital stay. By post op day #2 the patient was tolerating a diabetic diet, pain was reasonably controlled with oral pain medicine, and he was participating in physical therapy. On post op day #2 the patient was discharged home and set up with home health care. He was given printed discharge instructions including prescriptions for extra strength tylenol, aspirin, cefadroxil, toradol, oxycodone, zofran, and senokot. Continue physical therapy, weight bearing as tolerated. Continue LAURA stockings. Follow up approximately 2 weeks post op or sooner if there are problems or concerns. Coding Level of Care Code None Diagnoses Status post revision of total knee replacement Z96.659
== END 2022-08-12 13:37 | disposition home health service (06) ==
LOC: ASU 08:13 → 3E 08:13